=== PATIENT | female | born 1975 | race Caucasian/White ===

== ENCOUNTER 2021-02-16 20:10 | Inpatient (IN) | payer MEDICARE, MEDICAID ==
[2021-02-16] MEDS ORDERED: Albuterol/Ipratropium 3.0-0.5 MG/3 ML Neb Soln INH PRN (20:44)
[2021-02-16] MEDS ORDERED: Glucagon,Human Recombinant 1 MG Vial IM PRN (20:46)
[2021-02-16] MEDS ORDERED: 50% Dextrose in Water 50 ML Syringe IVPUSH PRN (20:46)
[2021-02-16] MEDS: Dextrose 5%-Lactated Ringers 1,000 ML IV SCH (21:22)
[2021-02-16] MEDS: Ondansetron 4 MG/2 ML SDV IVPUSH PRN (21:24)
[2021-02-16] MEDS: Albuterol/Ipratropium 3.0-0.5 MG/3 ML Neb Soln INH SCH (21:27)
[2021-02-17] MEDS: Morphine 2 MG/ML SYRINGE IV PRN ×3 (00:59→08:57)
[2021-02-17] MEDS ORDERED: Sodium Chloride 0.9% 50 ML ONE (01:37)
[2021-02-17] MEDS: Piperacillin/Tazobactam/Dext 3.375 GM in Premix Bag 1 BAG IV SCH ×4 (02:10→19:52)
[2021-02-17] MEDS: Dextrose 5%-Lactated Ringers 1,000 ML IV SCH (05:32)
[2021-02-17] MEDS: Albuterol/Ipratropium 3.0-0.5 MG/3 ML Neb Soln INH SCH ×5 (07:38→20:37)
[2021-02-17] MEDS: Insulin Lispro 100 Unit/ML 3 ML KwikPen SUBCUT SCH ×5 (07:41→21:38)
[2021-02-17] MEDS: Ondansetron 4 MG/2 ML SDV IVPUSH PRN (08:24)
[2021-02-17] MEDS ORDERED: Pantoprazole 40 MG Vial IV SCH (09:00)
[2021-02-17] MEDS ORDERED: Celecoxib 200 MG Cap PO SCH (09:00)
[2021-02-17] MEDS ORDERED: Bupivacaine 0.5% 50 ML MDV ONE (10:35)
[2021-02-17] MEDS ORDERED: Meropenem 500 MG SDV ONE (10:35)
[2021-02-17] MEDS ORDERED: Lidocaine 1% with EPINEPHrine 1:100,000 50 ML MDV ONE (10:35)
[2021-02-17] MEDS ORDERED: Acetaminophen 325 MG Tab PO PRN (10:42)
[2021-02-17] MEDS ORDERED: diphenhydrAMINE 50 MG/ML SDV IVPUSH ONE (10:42)
[2021-02-17] MEDS ORDERED: Propofol 200 MG/20 ML SDV ONE (12:17)
[2021-02-17] MEDS ORDERED: Ondansetron 4 MG/2 ML SDV ONE (12:17)
[2021-02-17] MEDS ORDERED: Succinylcholine 200 MG/10 ML MDV ONE (12:17)
[2021-02-17] MEDS ORDERED: Dexamethasone 4 MG/ML SDV ONE (12:17)
[2021-02-17] MEDS ORDERED: Neostigmine Methylsulfate 1 MG/ML 5 ML Syringe ONE (12:17)
[2021-02-17] MEDS ORDERED: Rocuronium 50 MG/5 ML Vial ONE ×2 (12:17→15:40)
[2021-02-17] MEDS ORDERED: fentaNYL 250 MCG/5 ML SDV ONE ×2 (12:17→15:41)
[2021-02-17] MEDS ORDERED: Glycopyrrolate 0.2 MG/ML 5 ML MDV ONE (12:17)
[2021-02-17] MEDS ORDERED: Ropivacaine 44 ML, dexAMETHasone 8 MG, EPINEPHrine 0.4 MG, Sodium Chloride 0.9% 33.6 ML NERVRT SCH ×4 (15:00)
[2021-02-17] MEDS ORDERED: Ketamine 17 MG in Sodium Chloride 0.9% 19.83 ML IV SCH (15:00)
[2021-02-17] MEDS ORDERED: Magnesium Sulfate 2.6 GM in Sodium Chloride 0.9% 100 ML IV SCH (15:00)
[2021-02-17] MEDS ORDERED: Ketamine 500 MG/5 ML MDV IV SCH (15:00)
[2021-02-17] MEDS ORDERED: Magnesium Sulfate 2.8 GM in Sodium Chloride 0.9% 250 ML IV ONE (15:00)
--- NOTE | 2021-02-17 15:01 | PN ---
DATE OF SERVICE: 02/17/2021 The patient is status post Hernan-en-Y gastric bypass in 2019. She presents now with a picture of probably a week or two or more of an inflammatory mass in the central abdomen superior to involve the small bowel with some fluid collection around it which may or may not be infected. She is definitely somewhat distended in that area and quite tender, and the plan will be to proceed with an exploratory laparotomy later today. She is presently on Zosyn, and we will add Azactam and call the OR as well. Her blood sugar control has been quite good, and she has more or less been in remission, off any insulin until just recently she is having a little bit of coverage with NovoLog, likely related to the inflammatory response. The patient's hemoglobin is 7.8, although her ferritin, B12, and folate levels were all normal. In the there is some question of narrowing of the rectosigmoid on the CT scan that is felt to likely be related to the plan will be to proceed with exploratory laparotomy today dealing with her small bowel issues, and then, tomorrow, we will probably proceed with flexible sigmoidoscopy just to make sure there is not anything significant going on in the rectum and sigmoid colon. Potential risks of today's procedure were reviewed, and she wishes to proceed. We will give her one unit of packed RBCs this morning with hemoglobin of 7.8. Julio César Gutierres MD /[id number]
[2021-02-17] MEDS ORDERED: Lactated Ringers 1,000 ML ONE (15:41)
[2021-02-17] MEDS ORDERED: fentaNYL 100 MCG/2 ML SDV ONE (17:09)
[2021-02-17] MEDS ORDERED: HYDROmorphone/Normal Saline 15 MG/30 ML PCA IV PRN (17:33)
[2021-02-17] MEDS ORDERED: Naloxone 0.4 MG/ML SDV IV PRN (18:00)
[2021-02-17] MEDS ORDERED: Sugammadex Sodium 200 MG/2 ML VIAL ONE (18:04)
[2021-02-17] MEDS ORDERED: Dextrose 5%-Lactated Ringers 1,000 ML IV SCH ×2 (18:05→20:15)
[2021-02-17] MEDS: Lactated Ringers 1,000 ML IV SCH (19:00)
[2021-02-17] MEDS: Cyclobenzaprine 10 MG Tab PO PRN (20:30)
[2021-02-17] MEDS: Pantoprazole 40 MG Vial IVPUSH SCH (20:37)
[2021-02-17] MEDS ORDERED: Ondansetron 4 MG/2 ML SDV IVPUSH PRN (21:00)
[2021-02-17] MEDS ORDERED: Albuterol/Ipratropium 3.0-0.5 MG/3 ML Neb Soln INH PRN (21:00)
[2021-02-17] MEDS ORDERED: Calcium Gluconate 10% 1 GM/10 ML SDV IVPUSH PRN (21:00)
[2021-02-17] MEDS ORDERED: Acetaminophen 500 MG Tab PO PRN (21:00)
[2021-02-17] MEDS ORDERED: Labetalol 20 MG/4 ML Syringe IVPUSH PRN (21:00)
[2021-02-17] MEDS ORDERED: Metoclopramide 10 MG/2 ML SDV IVPUSH PRN (21:00)
[2021-02-17] MEDS ORDERED: 50% Dextrose in Water 50 ML Syringe IVPUSH PRN (21:18)
[2021-02-17] MEDS ORDERED: Glucagon,Human Recombinant 1 MG Vial IM PRN (21:18)
[2021-02-17] MEDS: Acetaminophen 500 MG Tab PO SCH (21:21)
[2021-02-17] MEDS: diphenhydrAMINE 50 MG/ML SDV IVPUSH PRN (23:31)
[2021-02-18] MEDS ORDERED: Piperacillin/Tazobactam/Dext 3.375 GM in Premix Bag 1 BAG IV SCH (02:00)
[2021-02-18] MEDS ORDERED: Iopamidol 612 MG/ML 50 ML SDV PO STA (03:06)
[2021-02-18] MEDS: Insulin Lispro 100 Unit/ML 3 ML KwikPen SUBCUT SCH ×4 (04:37→21:21)
[2021-02-18] MEDS: Acetaminophen 500 MG Tab PO SCH ×3 (04:40→21:06)
[2021-02-18] MEDS: Albuterol/Ipratropium 3.0-0.5 MG/3 ML Neb Soln INH SCH ×4 (07:09→21:02)
[2021-02-18] MEDS: Lactated Ringers 1,000 ML IV SCH (07:41)
--- NOTE | 2021-02-18 09:32 | PN ---
DATE OF SERVICE: 02/18/2021 This is a 45-year-old female who recently had a gastric bypass done in 2019 at [facility]. She presents now, returning to the [facility] Emergency Room after several days or probably several weeks of increasing abdominal pain and obstipation. CT scan showed suggestive of complications in the lumen of the small bowel. 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 All of this was re-excised as a unit without breaking into the area of inflammation or tumor. A primary coloproctostomy was undertaken. The patient also had a small bowel resection with revision of jejunojejunostomy component of Hernan-en-Y gastric bypass related to that segment of bowel adjacent to that anastomosis being quite dark and somewhat ischemic in appearance and overall suggestive of a dye having been injected there, but that would be almost impossible to account for. The culture thus far is showing combination of gram-positive cocci and gram- negative rods, for which the patient's Zosyn and Azactam should likely cover. Urine output overnight has been good. Blood sugars are running a little bit high. Up until recently, she has not required any insulin coverage either with long-acting or short-acting, but during this hospitalization, she is receiving some coverage. We will switch her IV to today and continue the coverage. She has an open abdominal incision. Dr. Grene will be closing it up tomorrow, and otherwise, ongoing management would be primarily with Fabby Espinal PA-C, on the morning of 02/19/2021. Assuming that a cancer diagnosis is received, she will be likely following with Medical Oncology in [facility] and at that time discharge would need to be arranged. Julio César Gutierres MD /[id number]
[2021-02-18] MEDS: Piperacillin/Tazobactam/Dext 3.375 GM in Premix Bag 1 BAG IV SCH ×3 (09:54→21:25)
[2021-02-18] MEDS: Celecoxib 200 MG Cap PO SCH ×2 (09:57→21:06)
[2021-02-18] MEDS: diphenhydrAMINE 50 MG/ML SDV IVPUSH PRN ×3 (11:47→20:32)
[2021-02-18] MEDS: HYDROmorphone/Normal Saline 15 MG/30 ML PCA IV PRN (14:12)
[2021-02-18] MEDS: MVI, Adult with Vitamin K 10 ML, Thiamine 200 MG, Zinc/Copper/Manganese/Selenium 1 ML i... IV SCH ×4 (15:38)
[2021-02-18] MEDS: Pantoprazole 40 MG Vial IVPUSH SCH (21:06)
--- NOTE | 2021-02-18 22:40 | CRLCR ---
For Patients: As a result of the Century Cures Act, medical imaging exams and procedure reports are released immediately into your electronic medical record. You may view this report before your referring provider. If you have questions, please contact your health care provider. INDICATION: Status post Hernan-en-Y surgery. Evaluate for leak. COMPARISON: None available. FINDINGS: 4 erect plain films of the abdomen are obtained with the administration of oral contrast. The initial plain film is a bodybuilder view. There are surgical clips in the left upper quadrant consistent with partial gastrectomy and gastrojejunostomy. A left-sided Corby-Cedeno drain is seen. Surgical clips are also seen in the right upper quadrant consistent with cholecystectomy. There is a moderate amount of fecal material scattered throughout the nondistended colon raising the possibility of constipation. The small bowel is nondistended. With ingestion of oral contrast, contrast passes quickly through the small gastric remnant into the jejunostomy, with no sign of extravasation into the peritoneal cavity. There is no sign of any bowel obstruction. There is some residual oral contrast in the inferior thoracic esophagus on the last 2 films, suggesting free gastroesophageal reflux. There is no sign of any associated hiatal hernia. IMPRESSION: No sign of leak following Hernan-en-Y partial gastrectomy and anastomosis. No sign of any bowel obstruction. Persistent contrast in the inferior thoracic esophagus suggesting GE reflux. Dictated by Mir Adams MD @ 02/18/2021 10:38:07 PM (Electronically Signed)
[2021-02-19] MEDS: Lactated Ringers 1,000 ML IV SCH ×2 (02:10→09:08)
[2021-02-19] MEDS: diphenhydrAMINE 50 MG/ML SDV IVPUSH PRN ×3 (02:15→21:05)
[2021-02-19] MEDS: Piperacillin/Tazobactam/Dext 3.375 GM in Premix Bag 1 BAG IV SCH ×4 (03:55→21:21)
[2021-02-19] MEDS: Insulin Lispro 100 Unit/ML 3 ML KwikPen SUBCUT SCH ×4 (04:51→21:21)
[2021-02-19] MEDS: Acetaminophen 500 MG Tab PO SCH (04:53)
[2021-02-19] MEDS ORDERED: Lidocaine 1% with EPINEPHrine 1:100,000 50 ML MDV ONE (06:39)
[2021-02-19] MEDS ORDERED: Bupivacaine 0.5% 50 ML MDV ONE (06:39)
[2021-02-19] MEDS ORDERED: Bupivacaine 0.5% 50 ML MDV INJECT ONE ×2 (06:58→07:45)
[2021-02-19] MEDS ORDERED: Lidocaine 1% with EPINEPHrine 1:100,000 50 ML MDV INJECT ONE ×2 (06:59→07:45)
[2021-02-19] MEDS ORDERED: fentaNYL 100 MCG/2 ML SDV ONE (07:14)
[2021-02-19] MEDS ORDERED: Midazolam 1 MG/ML 2 ML SDV ONE (07:14)
[2021-02-19] MEDS ORDERED: Propofol 200 MG/20 ML SDV ONE ×2 (07:15→07:56)
[2021-02-19] MEDS ORDERED: Ropivacaine 44 ML, dexAMETHasone 8 MG, EPINEPHrine 0.4 MG, Sodium Chloride 0.9% 33.6 ML NERVRT SCH ×4 (07:30)
[2021-02-19] MEDS: Albuterol/Ipratropium 3.0-0.5 MG/3 ML Neb Soln INH SCH ×4 (07:35→21:22)
[2021-02-19] MEDS ORDERED: diphenhydrAMINE 50 MG/ML SDV IVPUSH ONE ×2 (07:44→10:00)
[2021-02-19] MEDS ORDERED: Meropenem 500 MG SDV IRR ONE (07:45)
[2021-02-19] MEDS ORDERED: Meropenem 500 MG SDV ONE (07:46)
[2021-02-19] MEDS ORDERED: Sodium Chloride 0.9% 10 ML ONE (07:46)
[2021-02-19] MEDS ORDERED: Cyanocobalamin (Vitamin B12) 1,000 MCG/ML SDV IM ONE (09:00)
[2021-02-19] MEDS: Celecoxib 200 MG Cap PO SCH ×2 (09:35→21:22)
[2021-02-19] MEDS ORDERED: Acetaminophen 1,000 MG in Premix Bag 1 BAG IV ONE ×2 (10:00→16:30)
--- NOTE | 2021-02-19 10:43 | PN ---
DATE OF SERVICE: 02/19/2021 SUBJECTIVE: Francesca is n.p.o. She is going down for delayed primary closure. She is using her LURE MAKER for pain. Hemoglobin this morning was 7.7. Russell catheter remains in. She has no other questions or concerns. OBJECTIVE: GENERAL: Francesca Waters is a pleasant 45-year-old female who is n.p.o. for delayed primary closure. VITAL SIGNS: TPR; 97.1, 65, 16. Blood pressure 119/72. HEENT: Negative. NECK: Supple. HEART: Regular rate and rhythm. LUNGS: Clear. ABDOMEN: Dressing dry and intact. Abdominal binder is on. EXTREMITIES: No peripheral edema. ASSESSMENT: Exploratory laparotomy, small bowel resection. Date: 02/17/2021. Surgeon: Julio César Gutierres MD. PLAN: 1. One unit packed red blood cells. 2. To give Tylenol 1 g IV, to give in place of her next oral dose and time to where it is given before her packed red blood cells due to febrile reaction previously. Benadryl 50 mg IV one time to be given prior to packed red blood cells. 3. Discontinue Russell catheter. 4. Check CBC, CMP, mag, phos in a.m. 5. Communication order, may manage own insulin. 6. We will evaluate p.r.n. or in a.m. Fabby Espinal PA-C /[id number]
--- NOTE | 2021-02-19 13:28 | OR ---
DATE OF PROCEDURE: 02/19/2021 SURGEON: Jamin Green MD PROCEDURE: Delayed primary closure. COMPLICATIONS: None. COMPRESSOR OPERATOR ADJUSTER: None. ANESTHESIA: Mac/local. INDICATIONS: A 45-year-old female who underwent a colorectal surgery with delayed closure of the abdominal wall requiring definitive closure today. FINDINGS: No signs of infection. No hernias. No abnormalities. Risks: Risks, benefits, alternatives, and limitations including, but not limited to infection, bleeding, chronic wounds, chronic pain were explained to the patient and wished to proceed. PROCEDURE IN DETAIL: The patient was placed in supine position. The abdominal wall was inspected. There was no hernia defect. The sutures were intact. There was no drainage. No cellulitis. This was then closed with multiple layers of #1 Vicryl suture, drea, and local anesthetic, approximately 30 mL. The patient tolerated the procedure well. Jamin Green MD /[id number]
--- NOTE | 2021-02-19 13:59 | OR ---
DATE OF PROCEDURE: 02/19/2021 SURGEON: Jamin Green MD PROCEDURES PERFORMED: 1. Transversus abdominis plane block, bilaterally. 2. Rectus sheath blocks, bilaterally. COMPLICATIONS: None. FINANCE CLERK: None. RISKS: Risks, benefits, alternatives, and limitations including, but not limited to infection, bleeding, and injury to abdominal structures were all explained to the patient, and she wished to proceed. PROCEDURE IN DETAIL: The patient was placed in the supine position. The left transversus plane was identified first. This was injected with 20% solution under direct visual guidance. This was then repeated on the other side. Bilateral rectus sheaths were injected also under direct visualization. At no point was the needle blindly advanced. This was always advanced using a 13 MHz ultrasound probe. The patient tolerated the procedure well. Of note, the procedure was performed using same manner, same fashion, same technique, in the same sequence, using the same equipment for all 4 locations. Jamin Green MD /[id number]
[2021-02-19] MEDS ORDERED: Acetaminophen 500 MG Tab PO SCH (18:00)
[2021-02-19] MEDS: Cyclobenzaprine 10 MG Tab PO PRN (19:36)
[2021-02-19] MEDS: MVI, Adult with Vitamin K 10 ML, Thiamine 200 MG, Zinc/Copper/Manganese/Selenium 1 ML i... IV SCH ×4 (21:05)
[2021-02-19] MEDS: Pantoprazole 40 MG Vial IVPUSH SCH (21:22)
[2021-02-20] MEDS: Acetaminophen 500 MG Tab PO SCH ×4 (00:22→23:53)
[2021-02-20] MEDS: Piperacillin/Tazobactam/Dext 3.375 GM in Premix Bag 1 BAG IV SCH ×4 (03:13→20:32)
[2021-02-20] MEDS: Insulin Lispro 100 Unit/ML 3 ML KwikPen SUBCUT SCH ×4 (06:19→21:01)
[2021-02-20] MEDS: Albuterol/Ipratropium 3.0-0.5 MG/3 ML Neb Soln INH SCH ×4 (06:59→20:32)
[2021-02-20] MEDS: HYDROmorphone/Normal Saline 15 MG/30 ML PCA IV PRN (07:21)
[2021-02-20] MEDS ORDERED: Lactated Ringers 1,000 ML IV SCH (08:00)
[2021-02-20] MEDS: Celecoxib 200 MG Cap PO SCH ×2 (09:30→20:32)
[2021-02-20] MEDS: Pantoprazole 40 MG Tab.CR PO SCH (20:32)
[2021-02-20] MEDS: diphenhydrAMINE 50 MG/ML SDV IVPUSH PRN (20:45)
[2021-02-21] MEDS: Albuterol/Ipratropium 3.0-0.5 MG/3 ML Neb Soln INH SCH ×4 (07:17→20:27)
[2021-02-21] MEDS ORDERED: Ondansetron 4 MG Tab.DIS PO PRN (08:01)
[2021-02-21] MEDS ORDERED: Bisacodyl 10 MG Supp RECTAL PRN (08:04)
[2021-02-21] MEDS: Insulin Lispro 100 Unit/ML 3 ML KwikPen SUBCUT SCH ×4 (09:30→21:34)
[2021-02-21] MEDS: Acetaminophen 500 MG Tab PO SCH ×2 (09:56→17:40)
[2021-02-21] MEDS: Celecoxib 200 MG Cap PO SCH ×2 (09:56→20:27)
[2021-02-21] MEDS: Albumin Human 25 GM in Premix Bag 1 BAG IV SCH (09:57)
[2021-02-21] MEDS: HYDROmorphone 2 MG Tab PO PRN ×2 (10:02→17:40)
[2021-02-21] MEDS: diphenhydrAMINE 25 MG Cap PO PRN ×2 (13:17→20:26)
[2021-02-21] MEDS: Cyclobenzaprine 10 MG Tab PO PRN (20:26)
[2021-02-21] MEDS: Pantoprazole 40 MG Tab.CR PO SCH (20:27)
[2021-02-22] MEDS: HYDROmorphone 2 MG Tab PO PRN ×4 (02:57→21:00)
[2021-02-22] MEDS: diphenhydrAMINE 25 MG Cap PO PRN ×2 (02:57→21:01)
[2021-02-22] MEDS: Acetaminophen 500 MG Tab PO SCH ×3 (02:57→20:59)
--- NOTE | 2021-02-22 06:53 | PN ---
DATE OF SERVICE: 02/21/2021 SUBJECTIVE: Francesca's hemoglobin this morning was 8.5. Blood sugars were 116 and 100. She remains on the Entereg, has not had a bowel movement yet, but she states that it is getting close. Pain is controlled with Dilaudid CONSUMER EXPERIENCE CONSULTANT. REVIEW OF SYSTEMS: Remainder of review of systems negative for any pertinent positives and negatives. OBJECTIVE: GENERAL: Francesca Waters is a pleasant 45-year-old female. She is alert and orientated. VITAL SIGNS: TPR is 97.5, 70, and 18. Blood pressure 132/75. HEENT: Negative. NECK: Supple. HEART: Regular rate and rhythm. LUNGS: Clear. ABDOMEN: Aquacel dressings on. Abdominal binder is on. EXTREMITIES: Without peripheral edema. ASSESSMENT: 1. Delayed primary closure, date 02/16/2021. Surgeon, Jamin Green MD. 2. Exploratory laparotomy with: a. Rectosigmoid resection with coloproctostomy. b. Resection of adhered small bowel. c. Drainage of intraabdominal abscess. d. Revision of jejunojejunostomy component. e. Mobilization of the splenic flexure, colon of Hernan-en-Y gastric bypass. f. Removal of potentially contaminated intraperitoneal sutures. g. Placement of Interceed mesh in omentum, into pelvis and cecum, and lower abdominal wall. POSTOPERATIVE DIAGNOSES: 1. 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 2. Segment of small bowel at the jejunojejunostomy showed ischemia. 3. Potentially contaminated with partial Prolene sutures. 4. Date of procedure 02/17/2021. Surgeon: Julio César Gutierres MD. PLAN: 1. Discontinue CONSUMER EXPERIENCE CONSULTANT. 2. Dilaudid 2 mg to 4 mg q.4 hours p.r.n. pain p.o. 3. Albumin 50 g IV daily. 4. Protein supplement to be sent q.i.d. 5. Check CBC, CMP, mag, and phos in a.m. 6. Dulcolax suppository per rectum p.r.n. constipation. Fabby Espinal PA-C /[id number]
--- NOTE | 2021-02-22 06:53 | PN ---
DATE OF SERVICE: 02/20/2021 SUBJECTIVE: Francesca states her pain is controlled with the HIGH SCHOOL COORDINATOR. Vital signs have been stable. Oral intake on a step 2 bariatric diet was 3040. Urine output 2100. JOS drains 1 and 2 put out 115 and 130 respectively of a serosanguineous drainage. REVIEW OF SYSTEMS: Remainder of review of systems negative for any pertinent positives and negatives. OBJECTIVE: GENERAL: Francesca Waters is a pleasant 45-year-old female. She is alert and orientated, resting comfortably in bed. VITAL SIGNS: TPR is 97.1, 67, 16, blood pressure is 149/90. HEENT: Negative. NECK: Supple. HEART: Regular rate and rhythm. LUNGS: Clear. ABDOMEN: Dressing dry and intact. Abdominal binder is on. EXTREMITIES: Without peripheral edema. ASSESSMENT: 1. Exploratory laparotomy, small bowel resection. 2. Date of procedure: 02/17/2021. Surgeon: Julio César Gutierres MD. PLAN: 1. May shower. 2. Check CBC, CMP, mag, phos, and BNP in a.m. 3. Decrease IV to TKO. 4. Check labs in a.m. 5. Continue use of incentive spirometer and ambulation. 6. We will evaluate p.r.n. or in a.m. Fabby Espinal PA-C /[id number]
[2021-02-22] MEDS: Albuterol/Ipratropium 3.0-0.5 MG/3 ML Neb Soln INH SCH ×4 (07:08→21:01)
[2021-02-22] MEDS: Insulin Lispro 100 Unit/ML 3 ML KwikPen SUBCUT SCH ×4 (07:39→21:46)
--- NOTE | 2021-02-22 09:08 | PN ---
DATE OF SERVICE: 02/22/2021 SUBJECTIVE: Francesca states the pain is controlled. She has been up, ambulating. Vital signs have been stable. Oral intake 1890. Urine output 1350. JOS drains put out 170 and 285 respectively. She is passing flatus but has not had a bowel movement yet. Hemoglobin 7.9. REVIEW OF SYSTEMS: Remainder of review of systems negative for any pertinent positives and negatives. OBJECTIVE: GENERAL: Francesca Waters is a pleasant 45-year-old female. She is alert and orientated, color pale. VITAL SIGNS: TPR 97, 74, 16, blood pressure 128/70. HEENT: Negative. NECK: Supple. HEART: Regular rate and rhythm. LUNGS: Clear. ABDOMEN: Soft, slightly distended. Abdominal binder is on and Aquacel dressing is on. JOS drains as above. EXTREMITIES: Without peripheral edema. ASSESSMENT: 1. Delayed primary closure. Date: 02/16/2021. Surgeon: Jamin Green MD. 2. Exploratory laparotomy with: a. Rectosigmoid resection with coloproctostomy. b. Resection of adherent small bowel. c. Drainage of intraperitoneal abscess. d. Revision of jejunojejunostomy component. e. Mobilization of the splenic flexure colon of Hernan-en-Y gastric bypass. f. Removal of potentially contaminated intraperitoneal sutures. g. Placement of Interceed mesh in omentum into pelvis and cecum and lower abdominal wall. POSTOPERATIVE DIAGNOSES: 1. Probable perforation, carcinoma of sigmoid colon and rectum with associated intraabdominal abscess and adherent bypass, small bowel. 2. Segment of small bowel at the jejunostomy showed ischemia. 3. Potentially contaminated with partial Prolene sutures. 4. Date of procedure: 02/17/2021. Surgeon: Julio César Gutierres MD. PLAN: 1. Milk of magnesia 30 mL p.o. b.i.d. 2. Discontinue JOS drains x2. 3. 1 unit of packed red blood cells today. Give Tylenol IV 1 g prior to 1 unit of packed red blood cells and Benadryl 50 mg IV prior to unit of packed red blood cells. 4. Check CBC, CMP, mag, phos in a.m. 5. We will evaluate p.r.n. or in a.m. Fabby Espinal PA-C /[id number]
[2021-02-22] MEDS: Albumin Human 25 GM in Premix Bag 1 BAG IV SCH (09:50)
[2021-02-22] MEDS: Celecoxib 200 MG Cap PO SCH ×2 (09:53→21:01)
[2021-02-22] MEDS: Magnesium Hydroxide 400 MG/5 ML Susp 30 ML Cup PO SCH ×2 (09:56→21:02)
[2021-02-22] MEDS ORDERED: Acetaminophen 1,000 MG in Premix Bag 1 BAG IV ONE (12:00)
[2021-02-22] MEDS: diphenhydrAMINE 50 MG/ML SDV IVPUSH PRN (14:04)
[2021-02-22] MEDS: Pantoprazole 40 MG Tab.CR PO SCH (21:02)
[2021-02-23] MEDS: Acetaminophen 500 MG Tab PO SCH ×2 (03:21→11:47)
[2021-02-23] MEDS: Albuterol/Ipratropium 3.0-0.5 MG/3 ML Neb Soln INH SCH ×2 (07:02→10:23)
[2021-02-23] MEDS: Insulin Lispro 100 Unit/ML 3 ML KwikPen SUBCUT SCH ×2 (07:37→11:46)
[2021-02-23] MEDS: Albumin Human 25 GM in Premix Bag 1 BAG IV SCH (09:12)
[2021-02-23] MEDS: Celecoxib 200 MG Cap PO SCH (09:15)
[2021-02-23] MEDS: HYDROmorphone 2 MG Tab PO PRN (11:46)
--- NOTE | 2021-02-24 07:52 | DISCH ---
ADMISSION DIAGNOSES: 1. Abdominal pain. 2. Constipation. Last bowel movement 3 weeks ago. 3. Enteritis. 4. Abdominal visceral abscess. 5. Diabetes type 2. 6. History of Lap-Band removal and Hernan-en-Y gastric bypass surgery; [place], [place], 2019. 7. Diabetic peripheral neuropathy associated with diabetes type 2. DISCHARGE DIAGNOSES: Exploratory laparotomy with: 1. Rectosigmoid resection with coloproctostomy. 2. Resection of adherent small bowel. 3. Drainage of intraperitoneal abscess. 4. Revision of the jejunojejunostomy component. 5. Mobilization of the splenic flexure colon of Hernan-en-Y gastric bypass. 6. Removal of potentially contaminated intraperitoneal sutures. 7. Placement of Interceed mesh in omentum into pelvic and cecum and lower abdominal wall. POSTOPERATIVE DIAGNOSES: 1. 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 2. Segment of small bowel jejunostomy showed ischemia. 3. Potentially contaminated partial Prolene sutures. 4. Date of procedure, 02/17/2021. Surgeon: Julio César Gutierres MD. 5. Delayed primary closure for open abdominal incision, 02/19/2021. Surgeon: Jamin Green MD. 6. Anemia requiring 3 units of packed red blood cells. HISTORY: 1. Francesca Waters is a pleasant 45-year-old female who was transferred from [facility] on 02/16/2021 for severe enteritis in lower abdomen involving the distal jejunum, proximal ileum with adjacent 47 x 29 mm fluid which cannot be discretely traced to bowel loops, abscess considered or inflammatory etiology. 2. Luminal narrowing at the rectosigmoid junction. 3. Trace bilateral pleural effusions. 4. Hernan-en-Y gastric bypass without complications. Francesca was transferred by ambulance to [place], [place], under the care of Julio César Gutierres MD. After preoperative evaluation and discussion of possible risks and possible complications, the patient wishes to proceed with surgical procedure. HOSPITAL COURSE: Francesca had her surgery on 02/17/2021 after she received 1 unit of packed red blood cells. She did have a febrile reaction to the packed red blood cell, so did not get the complete unit. The above surgical procedure was done on 02/18/2020 and she had no operative complications. On postoperative day 1, 02/18/2021, culture showed gram-positive cocci and gram-negative rods, and she was on Zosyn and Azactam, which will cover that. Urine output was good. Blood sugars remained high. She was on a sliding scale. On 02/19/2021, she had a delayed primary closure with IV and local sedation. She tolerated the procedure well. She did get another unit of packed red blood cells, but was premedicated with IV Tylenol and IV Benadryl. Russell catheter was discontinued, and she was started on a step 2 gastric bypass diet. On 02/20/2021, she was able to shower, continued with Entereg for bowel stimulation, and she was ambulating without difficulty. Vital signs were stable. On 02/21/2021, BUSINESS ADVISOR was discontinued. She was started on Dilaudid BUSINESS ADVISOR. Albumin 50 g IV was given daily and protein supplements orally were added q.i.d. She did have active bowel sounds and was passing flatus. On 02/22/2021, she did have 3 bowel movements. Hemoglobin decreased to 7.8, and she was given 1 unit of packed red blood cells but treated again with Tylenol IV and Benadryl 50 mg IV prior to blood transfusion. Diet was advanced to a soft low-fiber diet and to eat very slowly and to stick with that diet very closely. Vital signs were stable. Activity was good. Pain was controlled. Oral intake and output adequate. Her hemoglobin was 8.8 and albumin was 2.2 and protein 4.6. Francesca was able to be discharged to home in stable condition. PHYSICAL EXAMINATION: GENERAL: Francesca is a pleasant 45-year-old female. Height 5 feet 4 inches, weight 195 pounds. VITAL SIGNS: TPR is 97.4, 57, 16. Blood pressure 131/79. HEENT: Negative. NECK: Supple. HEART: Regular rate and rhythm. LUNGS: Clear. ABDOMEN: Aquacel dressings on clean and dry. Abdominal binder is on. EXTREMITIES: Without peripheral edema. NEUROLOGIC: Intact. PSYCHIATRIC: Mood and affect appropriate. SKIN: Without rash. DISPOSITION: Discharged to home. CONDITION: Stable and improving. FOLLOWUP: Appointment with Julio César Gutierres MD, on 03/03/2021 at 1 p.m. HOME MEDICATIONS: 1. Dilaudid 2 mg p.o. q.4 hours p.r.n. pain, #12. 2. Celebrex 200 mg p.o. b.i.d., #28. 3. Zofran ODT 4 mg p.o. q.4 hours p.r.n. nausea, #30. 4. Acetaminophen 1000 mg q.6 hours scheduled for pain. She is to resume home medications of Minipress 3 mg daily, Latuda 40 mg p.o. at bedtime, Lantus 35 units subcu at bedtime, multivitamin Flintstones chewable daily, vitamin B12 1000 mcg daily, calcium carbonate with vitamin D chewable 1 daily, Xanax 0.5 mg p.o. daily p.r.n. DIET: GI, low-residue, low-fiber diet. Drink 8 to 10 glasses of water a day. ACTIVITY: No lifting greater than 10 pounds for 6 weeks. OTHER ACTIVITY: Walk short distances 6 times daily. Driving: Do not drive for 1 week or within 8 hours of taking the Dilaudid pain medication. Shower/bathing: May shower. Keep operative site clean and dry. Wound incision care: Take off Aquacel dressing on 02/26/2021. Wear abdominal binder for 6 weeks and then as needed. Notify provider if any fever, increased pain, swelling, redness, drainage, nausea, vomiting. OTHER SPECIAL INSTRUCTIONS: 1. Walk 3 minute every hour while driving in the car. 2. Wear GENE stockings while traveling, thigh high. 3. Use incentive spirometer 10 times every hour while awake for a week. 4. Resume checking blood sugars at home. 5. Call the [facility] Surgery Department at [phone] from 8:25 to 4:30 and to call [facility] after clinic hours at [phone]. /[id number]
--- NOTE | 2021-02-26 08:10 | OR ---
DATE OF PROCEDURE: 02/17/2021 SURGEON: Julio César Gutierres MD PREOPERATIVE DIAGNOSIS: Probable small bowel obstruction, status post Hernan-en-Y gastric bypass. POSTOPERATIVE DIAGNOSES: 1. Small bowel obstruction associated with probable contained perforation of carcinoma at junction of sigmoid colon and rectum with associated intra-abdominal abscess and adherent loops of small bowel. 2. Segment of small bowel jejunojejunostomy versus ischemic. 3. Potentially contaminated intraperitoneal aggregate of Prolene sutures. OPERATIVE PROCEDURE: Exploratory laparotomy with: 1. Rectosigmoid resection with coloproctostomy (34780). 2. Resection of adherent loops of small bowel (07525). 3. Drainage of intra-abdominal abscess (24263). 4. Revision of jejunojejunostomy component of Hernan-en-Y gastric bypass (08411). 5. Mobilization of splenic flexure prior to colon resection (19115). 6. Removal of potentially contaminated aggregated intraperitoneal sutures (37986). 7. Placement of Interceed mesh and omentum into pelvis to displace small bowel and other viscera from pelvic and abdominal wall (29692). ANESTHESIA: General. INDICATIONS FOR PROCEDURE: This is a 45-year-old status post previous Hernan-en-Y gastric bypass at [facility] who while in [place] was found to have a picture of small bowel obstruction. This has been evolving for several days at least and the patient does complain of some obstipation over the past several weeks and months. Examination both clinically and by CT shows what appears to be an aggregated mass effect of bowel within the mid and lower abdomen, more or less above the pelvic inlet with evidence of gastric fluid potentially consistent with an abscess. Plan is to proceed with exploratory laparotomy with lysis of adhesions and bowel resection and drainage of infected foci as needed. Potential risks including bleeding, infection, leaks from various GI tract closures as well as possibility of cardiopulmonary, septic, or hemorrhagic complications leading to were discussed, and the patient wishes to proceed. DETAILS OF PROCEDURE: The patient was taken to the operating room and after general endotracheal anesthesia was induced, a Russell catheter was inserted and the abdomen prepped and draped. Midline incision, which was eventually extended roughly a handsbreadth towards the umbilicus just above the pubis, was made and carried down through full thickness of abdominal wall. The patient had previous panniculectomy. Care was taken to avoid devascularization of the newly placed fluid diffusely within the abdomen and primary finding was that of a large aggregated small bowel which contained rectosigmoid colon entering it and leaving it mass effect somewhat larger than a softball. At that point, decision made to remove this section of bowel more or less en bloc. The rectum below the mass was then isolated via the JONATHON stapler as was the mid sigmoid colon above it and this then allowed dissection away from the left lateral reflection on the left side of the mass, small bowel coming and going. The mass was simply divided and the mesentery between the colon and rectum and small bowel was then divided with JONATHON drea as well. This did allow the ventral mobilization away from its attachments upward. The entire area was then walled off and at that point, roughly 20 mL purulent fluid collection was obtained consistent with an abscess and cultures of this were obtained and the entire mass effect was then removed during the course of the dissection and removed the inflammatory mass. At no point was there any contamination of GI contents and no purulence as the entire mass was removed intact apart from the abscess site, which likewise was and gloves were obtained for the remainder of the case. Off the field, the mass was further opened as there appeared to have what appeared to be perforated carcinoma in the more or less rectosigmoid junction as the underlying cause for the both processes as I previously identified. Julio César Gutierres MD /[id number]
--- NOTE | 2021-02-26 08:16 | OR ---
DATE OF PROCEDURE: 02/17/2021 SURGEON: Julio César Gutierres MD PREOPERATIVE DIAGNOSIS: Probable small bowel obstruction, status post previous Hernan-en-Y gastric bypass. POSTOPERATIVE DIAGNOSES: 1. Probable contained perforation of junction of sigmoid colon and rectum with associated intraabdominal abscess and adherent loops of small bowel. 2. Segment of small bowel at jejunojejunostomy, either stained versus ischemic. 3. Potentially contaminated intraperitoneal aggregate of Prolene sutures. OPERATIVE PROCEDURES: Exploratory laparotomy with: 1. Rectosigmoid resection with coloproctostomy (08496). 2. Mobilization of splenic flexure to facilitate colon resection (77307). 3. Resection of adherent small bowel (33947). 4. Drainage of intraabdominal abscess (10220). 5. Revision of jejunojejunostomy component of Hernan-en-Y gastric bypass (74615). 6. Removal of potentially contaminated intraperitoneal sutures (32307). 7. Placement of Interceed mesh and omentum into pelvis to displace small bowel and other viscera away from pelvic and abdominal wall (29135). ANESTHESIA: General. INDICATIONS FOR PROCEDURE: This is a 45-year-old, status post previous Hernan-en-Y gastric bypass, presenting with a picture of a small-bowel obstruction that had been evolving over several days. She also reports some problems with obstipation over the past several weeks to months. The patient on CT scan and clinically has mass effect with aggregate of bowel and probably some fluid collection in the lower abdomen, more or less overlying the pelvic inlet. Plan is to proceed with exploratory laparotomy with bowel resection, draining of abscess, and other procedures as indicated based on intraoperative findings. Potential risks including bleeding, infection, leaks from various GI tract closures, problems with further bowel obstruction over time as well as possibility of cardiopulmonary, septic, or hemorrhagic complications leading to were discussed, and the patient wishes to proceed. DETAILS OF PROCEDURE: The patient was taken to the operating room, placed in a supine position. After general endotracheal anesthesia was induced, Russell catheter was inserted and the abdomen prepped. Roughly a handsbreadth below the xiphoid, midline incision was used and was eventually continued down to the level of the pubis. As we entered into the peritoneal cavity, a thin amount of purulent, stained material was present diffusely. Cultures of this were obtained. The mass effect seen on CT scan clinically consists of roughly a softball- sized area of small bowel and rectosigmoid colon and this appeared to be more or less an intact inflammatory mass. Given it, at this point, the rectum leading up toward the mass and the sigmoid colon adjacent to the mass were both divided with JONATHON drea as was the underlying mesentery. It was here that the small bowel entering and leaving the aspect was divided with JONATHON staple as was the underlying mesentery. This allowed the entire mass effect to be mobilized upward. It was contained by an antibiotic-containing sponges in all directions during the course of this dissection and a small opening and then collection of purulence was noted and this was evacuated and cultures obtained and the mass was then taken off the field. 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 This appeared to be entirely contained, however, within the mass effect, that was excised with no free spill of either JONATHON or purulent contents into the peritoneal cavity during the course of that dissection. New gowns and gloves were then obtained along with new instruments and the abdomen briefly irrigated with Zyvox and meropenem-containing saline solution. To obtain additional margin at the level of the colon and rectal resection, some additional rectum was excised and additional sigmoid colon was excised and the remaining proximal and distal margins were marked with sutures for pathologic review. In order to obtain a tension-free anastomosis between the colon and rectum, the splenic flexure was then mobilized with division of the lateral peritoneal reflections upward and then removed the splenic flexure attachments. This allowed mobilization of the sigmoid colon down into the pelvis where a tension-free anastomosis could subsequently be undertaken. The colon involving the anastomosis was largely free of stool at this point. The patient was converted to the lithotomy position and in the end of the sigmoid colon, small opening was made and the anvil of a 28 mm EEA stapler passed into that and then brought out. The antimesenteric border of the most dependent portion of the sigmoid colon and the remaining opening closed off with a JONATHON stapler as well. The main body of the stapler was then brought back to the rectal stump where the coloproctostomy was then accomplished. The double donuts of mucosa were noted within it upon stapler removal and the area was submerged with antibiotic-containing saline solution. Colonoscope was passed up into area of the anastomosis. It was visualized as was the mucosal appearance on both sides and no air bubbles were seen with insufflation of the air. The coloproctostomy was then reinforced on two-thirds of its circumference with 3-0 Vicryl seromuscular stitch and subsequently fibrin sealant. The small bowel continuity was then established with a [id number] enteroenterostomy with 2 internal firings of the Endo-JONATHON 60 mm stapler. Common opening was closed transversely with the same stapler and the angles anastomosed and mesenteric defect approximated with some 3-0 Vicryl stitch. Gentle exploration at this point revealed a somewhat peculiar segment of small bowel, which was purplish and flaccid at the point of takeoff of the common limb from the patient's jejunojejunostomy related to the Hernan-en-Y gastric bypass. Apart from that, there was no periaortic or more proximal mesenteric lymphadenopathy. No evidence of liver metastases or other visceral lesions and no peritoneal seeding was present on general exploration. Given the above findings of small bowel, decision was made to revise the jejunojejunostomy. The 3 components of that were then divided with JONATHON drea. The underlying mesentery was likewise divided with JONATHON drea and the specimen delivered from the field. GI tract continuity was then accomplished with [id number] anastomosis between what had been the proximal-most common limb to the distal-most biliopancreatic limb with 2 internal firings of the JONATHON stapler and the common opening closed transversely with the JONATHON stapler as well and this area of defect was anastomosed and reinforced with some 2-0 Vicryl stitch. GI tract continuity was then completed with an anastomosis between what had been the distal most common limb to the point roughly 20 cm distal to the first anastomosis with the same staple and suturing of continuity as outlined for the first anastomosis. At this point, all of the anastomoses were reinforced with some fibrin sealant and the abdomen was irrigated with antibiotic-containing saline solution until clear 2 Corby-Cedeno drains were placed one on each side of the abdomen, taken down to the pericolic gutters and from there into the pelvis. There was an area of sutures in the periumbilical area which were densely occupied by Prolene stitch, which was felt to be at high risk for subsequent stitch abscess formation. These intraperitoneal sutures were then removed as well. Interceed mesh was then placed down into the pelvis where the omentum would not quite fit, so the displacement of the small bowel from the pelvis was with combination of omentum and Interceed mesh in this case. The midline fascia was then approximated with #2 Vicryl stitch. Skin and subcutaneous tissue were felt to be at risk for wound infection and were left open for planned delayed primary closure. The drain was sutured to skin with some 3-0 Vicryl stitch. Prior to closure, bilateral transversus abdominis plane blocks were then placed and the patient was taken to the recovery room in satisfactory condition. Julio César Gutierres MD /[id number]
== END 2021-02-23 12:35 | disposition home or self-care (01) | DRG 326 ==
LOC: JP.MS 20:10
PROVIDERS: ADMIT Surgery; ATTEND Surgery
PROC: 0D160ZA Bypass Stomach to Jejunum, Open Approach (ICD-10-PCS; principal; 2021-02-17)
PROC: 0DBP0ZZ Excision of Rectum, Open Approach (ICD-10-PCS; 2021-02-17)
PROC: 0DBN0ZZ Excision of Sigmoid Colon, Open Approach (ICD-10-PCS; 2021-02-17)
PROC: 0DB80ZZ Excision of Small Intestine, Open Approach (ICD-10-PCS; 2021-02-17)
PROC: 0D1N0ZP Bypass Sigmoid Colon to Rectum, Open Approach (ICD-10-PCS; 2021-02-17)
PROC: 3E0M05Z Introduction of Adhesion Barrier into Peritoneal Cavity, Open Approach (ICD-10-PCS; 2021-02-17)
PROC: 30233N1 Transfusion of Nonautologous Red Blood Cells into Peripheral Vein, Percutaneous Approach (ICD-10-PCS; 2021-02-17)
PROC: 0HQ7XZZ Repair Abdomen Skin, External Approach (ICD-10-PCS; 2021-02-19)
DX: C18.7 Malignant neoplasm of sigmoid colon (principal); K65.1 Peritoneal abscess; C19 Malignant neoplasm of rectosigmoid junction; K95.89 Other complications of other bariatric procedure; K55.9 Vascular disorder of intestine, unspecified; J90 Pleural effusion, not elsewhere classified; J98.11 Atelectasis; Y83.8 Other surgical procedures as the cause of abnormal reaction of the patient, or of later complication, without mention of misadventure at the time of the procedure; D64.9 Anemia, unspecified; K59.00 Constipation, unspecified; K52.9 Noninfective gastroenteritis and colitis, unspecified; E11.42 Type 2 diabetes mellitus with diabetic polyneuropathy; F41.9 Anxiety disorder, unspecified; F32.9 Major depressive disorder, single episode, unspecified; E66.01 Morbid (severe) obesity due to excess calories; Z98.890 Other specified postprocedural states; Z98.84 Bariatric surgery status; Z90.49 Acquired absence of other specified parts of digestive tract; Z90.13 Acquired absence of bilateral breasts and nipples; Z79.4 Long term (current) use of insulin
CPT/HCPCS: 36415; 36430; 74240; 80053; 82378; 82607; 82728; 82746; 82947; 83735; 83880; 84100; 85014; 85018; 85025; 85027; 86850; 86900; 86901; 86920; 86922; 87070; 87075; 87077; 87186; 87205; 88300; 88305; 88307; 88309; 88341; 88342; 94640; 94762; A9270-GY; C9113; J0131; J0171; J0330; J1100; J1170; J1200; J1815; J2020; J2185; J2250; J2270; J2405; J2543; J2704; J2710; J2795; J3010; J3411; J3420; J3475; J3490; J7050; J7120; J7121; J7620-GY; P9016; P9047; Q9967